=== PATIENT | male | born 1940 | race Caucasian/White ===

== ENCOUNTER 2020-12-23 11:03 | Outpatient (CLI) | payer MEDICARE ==
[2020-12-23 12:20] LABS: #Basophils 0.1 10x3/uL (0.0-0.2); #Eosinphils 0.2 10x3/uL (0.0-0.5); #Monocytes 0.9 10x3/uL (0.0-1.1); #Neutrophils 4.1 10x3/uL (1.5-8.4); %Basophils 0.9 % (0.0-2.0); %Lymphocytes 24.6 % (18.0-47.0); %Monocytes 12.6 % (0.0-10.0); %Neutrophils 58.6 % (40.0-75.0); Hemoglobin 13.8 g/dL (13.5-17.5); Mean Corpuscular HGB CONC 32.5 g/dL (32.0-36.0); Mean Corpuscular Hemoglobin 29.7 pg (27.0-33.0); Mean Corpuscular Volume 91.6 fl (81.2-95.1); Mean Platelet Volume 9.9 fl (7.4-10.4); Platelet Count 216 10x3/uL (150-450); RBC Distribution Width 13.3 % (11.5-14.5); Red Blood Cell (RBC) Count 4.64 10x6/uL (4.32-5.72); White Blood Cell (WBC) Count 6.9 10x3/uL (3.5-10.5)
[2020-12-23 12:33] LABS: Prothrombin Time 10.9 sec (9.5-12.1)
[2020-12-23 21:54] LABS: SARS-CoV-2 PCR by NAA Not Detected (NotDetected)
== END 2020-12-23 11:04 | disposition home or self-care (01) ==
LOC: LABBT 11:03
PROVIDERS: ATTEND Orthopaedic Surgery
DX: Z01.818 Encounter for other preprocedural examination (principal); Z20.822 Contact with and (suspected) exposure to COVID-19
CPT/HCPCS: 85025; 85610; 93005; U0003; U0005; 87635; 93010

== ENCOUNTER 2020-12-28 09:21 | Day surgery (SDC) | payer MEDICARE ==
[2020-12-27 11:16] VITALS: BMI 31.1
[2020-12-28] MEDS ORDERED: Dexamethasone 20 MG/5 ML VIAL ONE (09:31)
[2020-12-28] MEDS ORDERED: Bupivacaine HCl 0.5%/Epinephrine 1:200,000/PF 30 ml Vial ONE (09:31)
[2020-12-28] MEDS ORDERED: Rocuronium Bromide 10 MG/ML (10ML VIAL) ONE (09:31)
[2020-12-28] MEDS ORDERED: Ondansetron PF 4 MG/2 ML Vial ONE (09:31)
[2020-12-28] MEDS ORDERED: Lidocaine 1% PF 5 ML VIAL ONE (09:31)
[2020-12-28] MEDS ORDERED: PROPOFOL 200 MG/20 ML VIAL ONE (09:31)
[2020-12-28] MEDS ORDERED: ePHEDrine 50 MG/ML VIAL ONE (09:31)
[2020-12-28 10:51] LABS: PTT 36.1 sec (22.9-36.1); Prothrombin Time 13.3 sec (12.0-14.7)
[2020-12-28] MEDS ORDERED: Midazolam HCl 2 mg/2 ml Vial ONE (10:53)
[2020-12-28] MEDS ORDERED: Fentanyl 100 MCG/2 ML VIAL ONE ×2 (10:53→11:16)
[2020-12-28] MEDS ORDERED: Sodium Chloride 0.9% 10 ML ONE (10:55)
[2020-12-28] MEDS ORDERED: EPINEPHrine 1 MG/ML AMP ONE (11:21)
[2020-12-28] MEDS ORDERED: Bupivacaine 0.25% HCL 30 ML VIAL ONE (11:21)
[2020-12-28] MEDS ORDERED: Fentanyl 100 MCG/2 ML VIAL IV PRN (11:36)
[2020-12-28] MEDS ORDERED: Zolpidem Tartrate 5 MG TAB PO PRN (11:45)
[2020-12-28] MEDS ORDERED: Ropivacaine 0.2% 550 ML 550 ML NERVE BLCK SCH (11:45)
[2020-12-28] MEDS ORDERED: Promethazine HCl 25 MG/ML VIAL IM PRN (11:45)
[2020-12-28] MEDS ORDERED: Ondansetron PF 4 MG/2 ML Vial IVP PRN (11:45)
[2020-12-28] MEDS ORDERED: HYDROcodone/Acetaminophen 10/325 mg Tablet PO PRN ×2 (11:45)
[2020-12-28] MEDS ORDERED: traMADol HCl 50 MG TAB PO PRN ×2 (11:45)
[2020-12-28] MEDS ORDERED: SUGAMMADEX SODIUM 200 MG/2 ML VIAL ONE (13:07)
== END 2020-12-28 15:10 | disposition home or self-care (01) ==
LOC: SDC 09:21
PROVIDERS: ATTEND Orthopaedic Surgery
PROC: 0LQ14ZZ Repair Right Shoulder Tendon, Percutaneous Endoscopic Approach (ICD-10-PCS; principal; 2020-12-28)
PROC: 0LS34ZZ Reposition Right Upper Arm Tendon, Percutaneous Endoscopic Approach (ICD-10-PCS; 2020-12-28)
PROC: 0RNJ4ZZ Release Right Shoulder Joint, Percutaneous Endoscopic Approach (ICD-10-PCS; 2020-12-28)
PROC: 3E0T3BZ Introduction of Anesthetic Agent into Peripheral Nerves and Plexi, Percutaneous Approach (ICD-10-PCS; 2020-12-28)
DX: S46.011A Strain of muscle(s) and tendon(s) of the rotator cuff of right shoulder, initial encounter (principal); S46.211A Strain of muscle, fascia and tendon of other parts of biceps, right arm, initial encounter; M25.811 Other specified joint disorders, right shoulder; G89.18 Other acute postprocedural pain; Z79.02 Long term (current) use of antithrombotics/antiplatelets; Z79.82 Long term (current) use of aspirin; Z79.899 Other long term (current) drug therapy
CPT/HCPCS: 29826; 29827; 29828; 64416; 85610; 85730; A4306; C1713; J0171; J0690; J1100; J2250; J2405; J2704; J2795; J3010; J3490; S0020

== ENCOUNTER 2022-07-06 13:46 | Outpatient (CLI) | payer MEDICARE | END 2022-07-06 13:47 | disposition home or self-care (01) | LOC: LABBT 13:46 | PROVIDERS: ATTEND Neurological Surgery | DX: Z20.822 Contact with and (suspected) exposure to COVID-19 (principal) | CPT/HCPCS: 87811 ==

== ENCOUNTER 2022-07-11 05:33 | Day surgery (SDC) | payer MEDICARE ==
[2022-07-09 10:27] VITALS: BMI 30.9
[2022-07-11] MEDS ORDERED: Bupivacaine HCl 0.5%/Epinephrine 1:200,000/PF 30 ml Vial ONE (06:10)
[2022-07-11] MEDS ORDERED: Thrombin 5000 UNITS/5 ML VIAL ONE (06:10)
[2022-07-11] MEDS ORDERED: Midazolam HCl 2 mg/2 ml Vial ONE (06:25)
[2022-07-11] MEDS ORDERED: fentaNYL Citrate/PF 100 MCG/2 ML SYRINGE ONE (06:25)
[2022-07-11] MEDS ORDERED: Sodium Chloride 0.9% 100 ML ONE ×2 (06:56→10:15)
[2022-07-11] MEDS ORDERED: CEFAZOLIN 2 GM VIAL ONE ×2 (06:56→10:15)
[2022-07-11] MEDS ORDERED: PROPOFOL 200 MG/20 ML VIAL ONE (07:03)
[2022-07-11] MEDS ORDERED: Glycopyrrolate 0.2 MG/ML 5 ML SYRINGE ONE (07:03)
[2022-07-11] MEDS ORDERED: ePHEDrine 50 MG/ML VIAL ONE (07:03)
[2022-07-11] MEDS ORDERED: Phenylephrine 10 MG/ML VIAL ONE (07:03)
[2022-07-11] MEDS ORDERED: Lidocaine 1% MPF 2 ML VIAL ONE (07:03)
[2022-07-11] MEDS ORDERED: NEOSTIGMINE 3 MG/3 ML SYR 3 MG/3 ML SYRINGE ONE (07:03)
[2022-07-11] MEDS ORDERED: Rocuronium Bromide 10 MG/ML (10ML VIAL) ONE (07:03)
[2022-07-11 07:37] LABS: Chloride 109 mmol/L (98-107); Sodium 137 mmol/L (136-145)
[2022-07-11 07:38] LABS: Calcium 9.5 mg/dL (7.8-10.44); Glucose 91 mg/dL (83-110)
[2022-07-11 07:40] LABS: Anion Gap 12 mmol/L (10-20); Carbon Dioxide 20 mmol/L (23-31)
[2022-07-11 07:42] LABS: BUN (Urea Nitrogen) 27 mg/dL (8.4-25.7); Calc. Creatinine Clearance 68 mL/min (70-130); Estimated GFR 56
[2022-07-11] MEDS ORDERED: Fentanyl 100 MCG/2 ML VIAL ONE ×2 (08:40→09:04)
[2022-07-11] MEDS ORDERED: Tamsulosin HCl 0.4 MG CAP ONE (08:45)
[2022-07-11] MEDS ORDERED: HYDROcodone/Acetaminophen 5/325 mg Tablet ONE (10:14)
== END 2022-07-11 15:05 | disposition home or self-care (01) ==
LOC: SDC 05:33
PROVIDERS: ATTEND Neurological Surgery
PROC: 01NB0ZZ Release Lumbar Nerve, Open Approach (ICD-10-PCS; principal; 2022-07-11)
DX: M48.062 Spinal stenosis, lumbar region with neurogenic claudication (principal); M54.16 Radiculopathy, lumbar region; E78.5 Hyperlipidemia, unspecified; I11.9 Hypertensive heart disease without heart failure; F17.200 Nicotine dependence, unspecified, uncomplicated; I25.10 Atherosclerotic heart disease of native coronary artery without angina pectoris; Z85.46 Personal history of malignant neoplasm of prostate; Z86.73 Personal history of transient ischemic attack (TIA), and cerebral infarction without residual deficits; Z79.02 Long term (current) use of antithrombotics/antiplatelets; Z79.82 Long term (current) use of aspirin; Z79.899 Other long term (current) drug therapy
CPT/HCPCS: 76000; 80048; J0690; J2250; J2370; J2704; J3010; J3490